=== PATIENT | female | born 1985 | race Caucasian/White ===

== ENCOUNTER 2016-11-16 13:09 | Emergency (ER) | payer SELFPAY ==
[2016-11-16 13:14] VITALS: PULSE 72; TEMP 97.7; O2SAT 97
--- NOTE | 2016-11-16 14:36 | EDPHY ---
H & P Time Seen by Provider: 11/16/16 13:41 HPI/ROS: CHIEF COMPLAINT: "My mouth is on fire" HISTORY OF PRESENT ILLNESS: Patient is a 31-year-old female who had a cleft palate the presents emergency department with painful lesions in her mouth. Her symptoms started about 5 days ago. She describes it as a burning sensation. It is moderate. It does not extend to her posterior pharynx or down to her chest. She has had no nausea vomiting. No abdominal pain. No fevers or chills. No genital lesions. No other rash. REVIEW OF SYSTEMS: My complete review of systems is negative except as mentioned in the HPI. Past Medical/Surgical History: Includes cleft palate and Social history: The patient does not smoke Smoking Status: Never smoked Physical Exam: Vitals noted. Afebrile GENERAL: Well-appearing, in no acute distress, alert. HEENT: Eyes normal to inspection, no signs of dehydration. Patient has numerous small ulcerations with surrounding erythema over her hard palate and bilateral cheeks. There is no tongue involvement. No posterior pharynx involvement. Uvula is midline. There is no asymmetry or mass. NECK: No thyromegaly, no lymphadenopathy, supple. No tenderness palpation. No stridor. RESPIRATORY: Clear to auscultation bilaterally, no rales, rhonchi or wheezing. CVS: Regular rate and rhythm, no rubs, murmurs, or gallops. ABDOMEN: Soft, nontender, nondistended, no organomegaly. BACK: Normal to inspection, no CVA tenderness. SKIN: Normal color, no rash, warm, dry. No pallor. EXTREMITIES: No pedal edema, no joint swelling. NEURO/PSYCH: Alert and oriented x3, normal mood and affect, normal motor sensory exam. Constitutional: Initial Vital Signs Temperature (C) 36.5 C 11/16/16 13:12 Heart Rate 72 11/16/16 13:12 Respiratory Rate 17 11/16/16 13:12 Blood Pressure 134/70 H 11/16/16 13:12 O2 Sat (%) 97 11/16/16 13:12 O2 Delivery Mode Room Air Allergies/Adverse Reactions: No Known Allergies Allergy (Verified 11/16/16 13:11) Home Medications: Medication Instructions Recorded Acyclovir 800 mg PO 5XD #35 tab 06/10/17 Medical Decision Making ED Course/Re-evaluation: In the emergency department I discussed possible etiologies with the patient. I answered all her questions. The patient will be given a course of acyclovir. She will return with increasing pain or worsening lesions. She is given warnings prior to leaving. She will follow up with primary care physician. Differential Diagnosis: My differential includes but is not limited to viral illness, stomatitis, immunocompromise, malignancy Departure - Departure Disposition: Home, Routine, Self-Care Clinical Impression: Stomatitis Condition: Good Instructions: Gingivostomatitis (ED) Additional Instructions: Return with increasing pain, worsening lesions, difficulty swallowing, shortness of breath, fever or any other concerns. You need close follow-up with primary care physician to ensure symptoms are resolving. Referrals: Darrian Michael, [Medical Doctor] - 2-3 days without fail (He) Prescriptions: Acyclovir 800 mg PO 5XD #35 tab
[2016-11-16 14:46] VITALS: BP 128/64; RESP 16
== END 2016-11-16 14:45 | disposition home or self-care (01) ==
DX: K12.1 Other forms of stomatitis (principal)